=== PATIENT | male | born 1995 | race Caucasian/White ===

== ENCOUNTER 2025-02-15 00:31 | Emergency (ER) | payer OTHER ==
[~2025-02-15] VITALS: Ht 172.7 cm; Wt 73.0 kg
[2025-02-15 00:34] VITALS: TEMP 37.1; O2SAT 99
[2025-02-15] MEDS ORDERED: MORPHINE SULFATE 4 MG/ML INJ (FOR IV/IM USE) IV STA (01:04)
[2025-02-15] MEDS ORDERED: ONDANSETRON HCL 4MG/2ML INJ IV STA (01:04)
[2025-02-15] MEDS: ONDANSETRON HCL 4MG/2ML INJ IV NR (02:09)
[2025-02-15 02:11] VITALS: BP 122/63; PULSE 110; RESP 18
[2025-02-15] MEDS: MORPHINE SULFATE 4 MG/ML INJ (FOR IV/IM USE) IV NR (02:11)
[2025-02-15] MEDS: SODIUM CHLORIDE 0.9% 1,000 ML IV ONE (02:59)
[2025-02-15] MEDS ORDERED: CETI10CA2 MT (05:10)
[2025-02-15] MEDS ORDERED: CLIN-194 MT (05:10)
[2025-02-15] MEDS ORDERED: IBUP-2029 MT (05:10)
== END 2025-02-15 05:46 | disposition home or self-care (01) ==
LOC: ER 00:31
DX: S00.03XA Contusion of scalp, initial encounter (principal); Z88.0 Allergy status to penicillin; Y04.0XXA Assault by unarmed brawl or fight, initial encounter; Y93.89 Activity, other specified; Y92.89 Other specified places as the place of occurrence of the external cause; Y99.8 Other external cause status
CPT/HCPCS: 70450; 70486; 72125; 96360; 99291; J2405; J7030; Z7610; J2270